=== PATIENT | female | born 1960 | race Caucasian/White ===

== ENCOUNTER 2024-06-27 11:15 | Outpatient (CLI) | payer MEDICARE, SELFPAY ==
--- NOTE | ~2024-06-27 | XR_ITS ---
CHEST RADIOGRAPH, PA AND LATERAL CLINICAL HISTORY: asthmatic like attack 1 wk ago, no hx of asthma . COMPARISON: None available TECHNIQUE: PA and lateral views of the chest. FINDINGS The cardiomediastinal silhouette is unremarkable. Trace peribronchial thickening. The lungs are otherwise clear. IMPRESSION: Trace peribronchial thickening, without focal infiltrate or effusion. Reviewed, dictated and finalized at location A. [employer] WORKER
--- OUTSIDE RECORDS SUMMARY | 2024-06-27 13:04 | XMS_ITS | Clinical Summary ---
Author Organization [facility] Address [facility] [place] [address] Care Team Providers Care Retail Salesman Name Role Phone Lizzette Ann MD Primary Care Provider [phone] Allergies No known active allergies Medications vitamin B-12 (CYANOCOBALAMIN ) 1000 MCG tablet Take 1,000 mcg by mouth daily. lozenge Active Multiple Vitamin (MULTIVITAMIN ADULT OR) Active B-COMPLEX-C OR Activ e vitamin E 100 UNIT capsule Take 100 Units by mouth daily. Active Multiple Vitamins-Minera ls (HAIRVITE OR) Active ibuprofen (MOTRIN) 800 MG tablet Take 800 mg by mouth every 6 (six) hours as needed for Pain. Active Ascorbic Acid (FRANCISCO-C OR) Take 1 tablet by mouth daily. Active multiple vitamins-minera ls (OCUVITE-LUTEIN ) Cap Take 1 capsule by mouth daily. Active calcium citrate 950 (200 CA) MG Tab tablet 950 mg 2 (two) times daily. Active Ascorbic Acid 250 MG Chew Tab Chew 2 tablets by mouth daily. Active HYDROcodone-pilo taminophen (NORCO) 5-325 MG tabletIndicatio ns:Acute Pain < 7 Day Supply Take 1 tablet by mouth every 4 (four) hours as needed. Indications: Acute Pain < 7 Day Supply 20 tablet 05/20/2022 Active Active Problems No known active problems Family History Medical History Relation Comments No Known Problems Father Cancer Mother Relation Status Comments Father Alive Mother Social History Tobacco Use Types Packs/Day Years Used Date Smoking Tobacco: Former Cigarettes Smokeless Tobacco: Never Tobacco Cessation:Counseling Given: Not Answered Comments:Used to be a social smoker, only if drinking back in 20s Alcohol Use Standard Drinks/Week Comments Yes 1.7 (1 standard drin k = 0.6 oz pure alcohol) bottle of wine or so in a week Comments No Sex and Gender Information Value Date Recorded Sex Assigned at Not on file Legal Sex Female 1:51 PM PATTERN MOLDER Gender Identity Not on file Sexual Orientation Not on file Last Filed Vital Signs Vital Sign Reading Time Taken Comments Blood Pressure 157/96 05/20/2022 4:30 PM PATTERN MOLDER Pulse 91 05/20/2022 4:30 PM PATTERN MOLDER Temperature 37 C (98.6 F) 05/20/2022 4:30 PM PATTERN MOLDER Respiratory Rate 16 05/20/2022 4:30 PM PATTERN MOLDER Oxygen Saturation 99% 05/20/2022 4:30 PM PATTERN MOLDER Inhaled Oxygen Concentration - - Weight 62.4 kg (137 lb 9.1 oz) 05/20/2022 10:35 AM PATTERN MOLDER Height 168.9 cm (5' 6.5 ) 05/20/2022 10:35 AM CS T Body Mass Index 21.87 05/20/2022 10:35 AM PATTERN MOLDER Plan of Treatment Health Maintenance Due Date Last Done Comments Colorectal Cancer Screening Colonoscopy (10 Years) 1959 Hepatitis C 1977 DTaP, Tdap and Td Vaccines (1 - Tdap) 1978 Mammogram Screening 1999 COVID-19 Vaccine ( season) 2023 04/15/2021, 08/12/2020, 07/28/2020, Additional history exists Influenza Adult (#1) 2024 Dexa Scan (General) 2024 Pneumococcal Vaccine: 65+ Years (1 of 1 - PCV) 2024 RSV Immunization or 60+ Years (1 - 1-dose 75+ series) 2034 Zoster Vaccines Completed 09/18/2021, 07/18/2021 Meningococcal B Vaccine Aged Out No l onger eligible based on patient's age to complete this topic Meningococcal Vaccine Aged Out No suzy bladimir eligible based on patient's age to complete this topic Pneumococcal Vaccine: Pediatrics (0 to 5 Years) and At-Risk Patients (6 to 64 Years) Aged Out No longer eligible based on patient's age to complete this topic RSV Immunizations Under 20 Months Aged Out No longer eligible based on patient's age to complete this topic Insurance Care Teams Retail Salesman Relationship Specialty Start Date End Date Lizzette Ann MD [address] [place] [address] [place] [address] PCP - General FAMILY PRACTICE 09/01/22
--- OUTSIDE RECORDS SUMMARY | 2024-06-27 13:04 | XMS_ITS | Clinical Summary ---
Author Organization [facility] Address [address], [facility] [address] [place] [address] Phone Care Team Providers Care Clinical Implementation Specialist Name Role Phone Provider, None Primary Care Provider Unavailabl e Allergies No known active allergies Medications polyethylene glycol (MIRALAX) Powder Mix the entire bottle with 64 oz of a clear liquid. Use as directed by the office for colonoscopy prep. 255 g 0 6 Active Ascorbic Acid (VITAMIN C) 250 MG Chewable Tablet Take 2 Tabs by mouth daily. Active vitamin E (TOCOPHEROL) 400 UNIT Capsule Take 400 Units by mouth daily. Active B Complex Vitamins (VITAMIN B COMPLEX PO) Take 1 Tab by mouth daily. Active multiple vitamin with minerals (CENTRUM SILVER) Tablet Take 1 Tab by mouth daily. Active Multiple Vitamins-Minera ls (EYE VITAMINS PO) Take 1 Tab by mouth daily. Active ASPIRIN PO Take 1 Tab by mouth as needed. Active Ibuprofen (ADVIL PO) Take 1 Tab by mouth as needed. Active Active Problems No known active problems Family History Medical History Relation Name Comments Macular Degeneration Father Breast Cancer Mother Hypertension Mother Stroke Mother Relation Name Status Comments Father Alive Mother Social History Tobacco Use Types Packs/Day Years Used Date Smoking Tobacco: Former Cigarettes Q uit: 10/29/2000 Smokeless Tobacco: Never Comments:former social smoke r Alcohol Use Standard Drinks/Week Comments Yes 0 (1 standard drink = 0.6 oz pur e alcohol) daily glass of wine or a beer Comments No Sex and Gender Information Value Date Recorded Sex Assigned at Not on file Legal Sex Female 8:41 PM CDT Gender Identity Not on file Sexual Orientation Not on file Last Filed Vital Signs Vital Sign Reading Time Taken Comments Blood Pressure 117/69 10/30/2015 8:25 AM CDT Pulse 67 09/04/2015 8:52 AM CDT Temperature 36 C (96.8 F) 10/30/2015 8:25 AM CDT Respiratory Rate 15 10/30/2015 8:25 AM CDT Oxygen Saturation 99% 10/30/2015 8:25 AM CDT Inhaled Oxygen Concentration - - Weight 64.4 kg (142 lb) 10/23/2015 2:39 PM CDT Height 170.2 cm (5' 7 ) 10/23/2015 2:39 PM CDT Body Mass Index 22.24 10/23/2015 2:39 PM CDT Plan of Treatment Health Maintenance Due Date Last Done Comments DEXA Bone Density 1960 Hepatitis C Virus (HCV) Screening 1960 TdaP Immunization 1959 Pap Smear 1980 Cervical Cancer Screening (CCS) 1989 HPV/Cotest 1989 Mammogram 1999 Cologuard 2009 Immunochemical Fecal Occult Blood 2009 Pneumococcal Immunization (5 0+ years) (1 of 1 - PCV) 2009 Zoster Immunization (1 of 2) 2009 Influenza Immunization (#1) 2023 SARS-COV-2 Immunization ( - 2023- season) 2023 Colonoscopy 10/29/2025 10/30/2015 Colorectal Cancer Screening 10/29/2025 Respiratory Syncytial Virus (RSV) Immunization (Adult) (1 - 1-dose 75+ series) 2034 10/30/2015 Hepatitis B Immunization Aged Out No longer eligible based on patient's age to complete this topic Meningococcal Immunization (ACWY) Aged Out No longer eligible based on patient's age to complete this topic Pneumococcal Immunization Combined Aged Out No longer eligible based on patient's age to complete this topic Rotavirus Immunization Aged Out No lo nger eligible based on patient's age to complete this topic Care Teams Clinical Implementation Specialist Relationship Specialty Start Date End Date Provider, None [place] PCP - General 10/08/20
--- OUTSIDE RECORDS SUMMARY | 2024-06-27 13:04 | XMS_ITS | Referral Summary ---
Author Organization [facility] [address] Address [address] [place] [address] Phone Care Team Providers Care Nurse Substance Abuse Name Role Phone Lizzette Ann MD Primary Care Provider + Allergies No known active allergies Medications ascorbic acid (vitamin C) 100 mg tablet once a day 0 0 05/21/2013 Active vitamin E (AQUASOL E) 100 unit capsule once a day 0 05/21/2013 Activ e multivit-mineral s-ferrous fum (MULTI VITAMIN) 9 mg iron/15 mL liquid once a day 0 0 05/21/2013 Active vit M4-guquhm-Y9-B12 -dexpanth (B COMPLEX) 1.7-20-2-1.2 mg/mL liquid once a day 0 0 05/21/2013 Active cyanocobalamin, vitamin B-12, 1,[address] 1 TABLET UNDER THE TOUNGE EVERY DAY FOR 90 DAYS. 11/29/2021 Active Active Problems Problem Noted Date Diagnosed Date Personal history of colonic polyps 02/24/2023 Encounter for screening colonoscopy 02/24/2023 Social History Tobacco Use Types Packs/Day Years Used Date Smoking Tobacco: Former Smokeless Tobacco: Never Alcohol Use Standard Drinks/Week Comments Yes 0 (1 standard drink = 0.6 oz pur e alcohol) Personal Safety Answer Date Recorded Have you ever been in or are you currently in a harmful physical or emotional relationship or is someone making you feel afraid or unsafe? Denies 05/19/2023 Comments No Sex and Gender Information Value Date Recorded Sex Assigned at Not on file Legal Sex Female 12:34 PM LENS GRINDER APPRENTICE Gender Identity Not on file Sexual Orientation Not on file Occupation Industry Job Start Date Job End Date [employer] hanging [employer] removal Not on file Not on file Not on file Last Filed Vital Signs Vital Sign Reading Time Taken Comments Blood Pressure 131/91 05/19/2023 8:40 AM LENS GRINDER APPRENTICE Pulse 60 05/19/2023 8:40 AM LENS GRINDER APPRENTICE Temperature 36.2 C (97.1 F) 05/19/2023 8:40 AM LENS GRINDER APPRENTICE Respiratory Rate 16 05/19/2023 8:40 AM LENS GRINDER APPRENTICE Oxygen Saturation 100% 05/19/2023 8:40 AM LENS GRINDER APPRENTICE Inhaled Oxygen Concentration - - Weight 64 kg (141 lb) 05/19/2023 7:15 AM LENS GRINDER APPRENTICE Height 167.6 cm (5' 6 ) 05/19/2023 7:15 AM LENS GRINDER APPRENTICE Body Mass Index 22.76 05/19/2023 7:15 AM LENS GRINDER APPRENTICE Plan of Treatment Not on file Procedures Procedure Name Priority Date/Time Associated Diagnosis Comments COLONOSCOPY 05/19/2023 7:04 AM LENS GRINDER APPRENTICE SCREENING MAMMOGRAM 2D BILATERAL Schedule Routine, Read Routine (OP Routine) 11/08/2019 9:31 AM CDT Breast cancer screening by mammogram IMAGING PAP AND HPV MRNA E6/E7 Routine 11/08/2019 9:21 AM CDT Screening for malignant neoplasm of the cervix from Last 3 Months or Most Recently Relevant to Health Maintenance Results * COLONOSCOPY (05/19/2023 7:04 AM LENS GRINDER APPRENTICE) Anatomical Region Laterality Modality Other Narrative Procedure Note Francisco Rand MD - 05/19/2023 7:04 AM CST [facility] Patient Name: Daina Degonia Procedure Date: 05/19/2023 7:04 AM Date of : 1960 Admit Type: Outpatient Age: 63 Gender: Female Attending MD: Francisco Rand M.D. Room: [facility] ENDOSCOPY ROOM 2 Note Status: Finalized Patient Profile: Refer to note in patient chart for documentation of history and physical. Procedure: Colonoscopy Indications: High risk colon cancer surveillance: Personalhistory of colonic polyps, Last colonoscopy: October 2015 Referring MD: Lizzette Ann M.D. Providers: Francisco Rand M.D. Impression: - Hemorrhoids found on perianal exam. - Diverticulosis in the sigmoid colon. - The examination was otherwise normal. - No specimens collected. Recommendation: - Discharge patient to home. - Resume previous diet. - Continue present medications. - [facility] [address] [facility] - Return to primary care physician as previously scheduled. Medicines: Propofol per Anesthesia Complications: No immediate complications. Estimated Blood Loss: Estimated blood loss: none. Procedure: Pre-Anesthesia Assessment: - This assessment was completed [Time ofAssessment] prior to the administration of sedation. The benefits, risks and alternatives of theprocedure and sedation were discussed and informed consentwas obtained. All questions were answered. Please referto the signed informed consent document in the medical record. The bowel preparation used was Miralax via single dose instruction. The bowel preparation used was bisacodyl tablets via single dose instruction.The scope was passed under direct vision. TheColonoscope [id number] was introduced through the anus and advanced to the the cecum, identified by appendiceal orifice and ileocecal valve. The colonoscopy was performed without difficulty. The patient tolerated the procedure well. The qualityof the bowel preparation was excellent. The ileocecal valve, appendiceal orifice, and rectum were photographed. Findings: Hemorrhoids were found on perianal exam. Multiple small and large-mouthed diverticula were found in thesigmoid colon. The exam was otherwise without abnormality. Electronically signed by Francisco Rand M.D. Francisco Rand M.D. 05/19/2023 8:08:12 AM Number of Addenda: 0 Note Initiated On: 05/19/2023 7:04 AM Procedure Code(s): --- Professional --- G0105, Colorectal cancer screening; colonoscopy on individual at high risk --- Technical --- G0105, Colorectal cancer screening; colonoscopy on individual at high risk Diagnosis Code(s): --- Professional --- K57.30, Diverticulosis of large intestine without perforation orabscess without bleeding K64.9, Unspecified hemorrhoids Z86.010, Personal history of colonic polyps --- Technical --- K57.30, Diverticulosis of large intestine without perforation orabscess without bleeding K64.9, Unspecified hemorrhoids Z86.010, Personal history of colonic polyps CPT copyright 2020 [employer]. All rights reserved. The codes documented in this report are preliminary and upon label coder reviewmay be revised to meet current compliance requirements. Recognized by the [employer] for promoting quality in endoscopy us Francisco Rand MD ENDOSCOPY PROCEDURES Final Re sult * Screening Mammogram 2D Bilateral (11/08/2019 9:31 AM CDT) Anatomical Region Laterality Modality Breast Bilateral Mammography Narrative 11/12/2019 4:38 PM CDT BILATERAL DIGITAL MAMMOGRAPHY The present examination has been compared to prior imaging studies dated 01/11/2018, 07/25/2016, and 05/21/2013. Mammography Findings CAD (computer-aided detection) software was utilized. The breasts are heterogeneously dense. This may lower the sensitivity of mammography. No masses, significant calcifications or other abnormalities are seen. Impression There is no mammographic evidence of malignancy. Screening mammogram in 1 year is recommended. BI-RADS Category 1: Negative PATIENT LETTER SENT Result [facility] Asuncion Liao MD IMG MAMMO PROCEDURES Final Result * Imaging Pap and HPV mRNA E6/E7 (11/08/2019 9:21 AM CDT) CLINICAL INFORMATION: [facility] Comment:Information not prov ided LMP [facility] Comment:POSTMENOPAUSAL Previous Pap [facility] Comment:INFORMATION NOT PROV IDED Prev. Bx [facility] Comment:INFORMATION NOT PROV IDED SOURCE: [facility] Comment:Information not prov ided Pap, specimen adequacy [facility] Comment:SATISFACTORY FOR SIXTO LUATION HPV interp [facility] Comment: Negative for intraepithelial lesion or malignancy. Atrophic pattern; predominantly parabasal cells COMMENTS [facility] Comment: This Pap test has been evaluated with computer assisted technology. [employer] [facility] Comment: MEF, CT(ASCP) CT screening location: [place] [address] [place] [address] Comment [facility] Comment: EXPLANATORY NOTE: The Pap is a screening test for cervical cancer. It is not a diagnostic test and is subject to false negative and false positive results. It is most reliable when a satisfactory sample, regularly obtained, is submitted with relevant clinical findings and history, and when the Pap result is evaluated along with historic and current clinical information. Human papillomavirus RNA, High Risk E6/E7 Not Detected Not Detected [employer] [facility] Comment: This test was performed using the APTIMA HPV Assay ([employer] This assay detects E6/E7 viral messenger RNA (mRNA) from 14 high-risk HPV types (16,18,31,33,35,39,45,51,52,56,58,59,66,68). The analytical performance characteristics of this assay have been determined by [employer]. The modifications have not been cleared or approved by the FDA. This assay has been validated pursuant to the CLIA regulations and is used for clinical purposes. Vaginal fluid 11/08/2019 9:2 1 AM CDT 11/11/2019 12:14 PM CDT Lizzette Gar NP LAB PATHOLOGY ORDERABLES Final Result [facility] [address] [id number] [facility] [address] [place] [address] from Last 3 Months or Most Recently Relevant to Health Maintenance Insurance [employer] [place] [place] [employer] [place] [place] Advance Directives For more information, please contact: [phone] * Full Code (Latest Code Status on File) Date Activated Date Inactivated Comments 05/19/2023 7:09 AM 05/19/2023 12:51 PM * Full Code Date Activated Date Inactivated Comments 05/19/2023 7:09 AM 05/19/2023 7:09 AM Care Teams Nurse Substance Abuse Relationship Specialty Start Date End Date Lizzette Ann MD [address] [place] [address] [place] [id number] PCP - General Family Medicine 06/29/22
--- OUTSIDE RECORDS SUMMARY | 2024-06-27 13:04 | XMS_ITS | Clinical Summary ---
Author Organization [facility] [address] Address [address] [place] [address] Phone Care Team Providers Care Money Laundering Investigator Name Role Phone Lizzette Ann MD Primary Care Provider + Allergies No known active allergies Medications ascorbic acid (vitamin C) 100 mg tablet once a day 0 0 05/21/2013 Active vitamin E (AQUASOL E) 100 unit capsule once a day 0 05/21/2013 Activ e multivit-mineral s-ferrous fum (MULTI VITAMIN) 9 mg iron/15 mL liquid once a day 0 0 05/21/2013 Active vit U8-obsaas-Y7-B12 -dexpanth (B COMPLEX) 1.7-20-2-1.2 mg/mL liquid once a day 0 0 05/21/2013 Active cyanocobalamin, vitamin B-12, 1,[address] 1 TABLET UNDER THE TOUNGE EVERY DAY FOR 90 DAYS. 11/29/2021 Active Active Problems Problem Noted Date Diagnosed Date Personal history of colonic polyps 02/24/2023 Encounter for screening colonoscopy 02/24/2023 Surgical History Surgery Date Site/Laterality Comments TONSILLECTOMY Tonsillectomy OTHER SURGICAL HISTORY ASCUS HR HPV (-): Colposcopy- ' benign polyp, '08 MAGALYS 1 OTHER SURGICAL HISTORY Benign calcifications, intraductal hyperplasia: R breast biopsy '02, '04 COLONOSCOPY 10/2015 THYROIDECTOMY, PARTIAL 04/24/2022 - 05/24/2022 Medical History Medical History Date Comments Hx Other Medical ASCUS HR HPV (- ) Hx Other Medical Benign calcific ations, intraductal hyperplasia Family History Medical History Relation Name Comments Breast cancer Mother 2 Cancer, breast ; Stroke Mother 2 Stroke; Cause o f : Stroke Relation Name Status Comments Mother 1 (Age 86) Mother 2 Social History Tobacco Use Types Packs/Day Years [...] on file Legal Sex Female 12:34 PM INVESTMENT DIRECTOR Gender Identity Not on file Sexual Orientation Not on file Occupation Industry Job Start Date Job End Date [employer] hanging [employer] removal Not on file Not on file Not on file Obstetrics History Para Term AB IAB SAB Ectopic Multiple Livin g Live Births 2 1 1 1 1 Date Outcome GA Total Labor Labor/2nd/3rd Weight Sex Type Anes PTL Ying A1 A5 Name Clin Term AB Last Filed Vital Signs Vital Sign Reading Time Taken Comments Blood Pressure 131/91 05/19/2023 8:40 AM INVESTMENT DIRECTOR Pulse 60 05/19/2023 8:40 AM INVESTMENT DIRECTOR Temperature 36.2 C (97.1 F) 05/19/2023 8:40 AM INVESTMENT DIRECTOR Respiratory Rate 16 05/19/2023 8:40 AM INVESTMENT DIRECTOR Oxygen Saturation 100% 05/19/2023 8:40 AM INVESTMENT DIRECTOR Inhaled Oxygen Concentration - - Weight 64 kg (141 lb) 05/19/2023 7:15 AM INVESTMENT DIRECTOR Height 167.6 cm (5' 6 ) 05/19/2023 7:15 AM INVESTMENT DIRECTOR Body Mass Index 22.76 05/19/2023 7:15 AM INVESTMENT DIRECTOR Plan of Treatment Health Maintenance Due Date Last Done Comments Depression Screening 1960 Hepatitis C Screening 1960 Osteoporosis Screening-Bone Density Scan 1960 DTaP/Tdap/Td Vaccine (1 - Tdap) 1970 Hepatitis B Screening 1977 Pneumococcal vaccine 65+ (1 of 1 - PCV) 2009 Breast Cancer Screening-Mammogram 11/07/2020 020, 01/11/2018 Cervical Cancer Screening 11/07/20202019, 05/10/2012, 05/10/2012, Additional history exists Covid-19 Vaccine ( - 2023-2 5 season) 2023 04/15/2021, 08/12/2020, 07/28/2020, Additional history exists Influenza Vaccine (#1) 2023 Well Visit 65+ 2024 12/08/2021, 10/22, 01/11/2018 Fall Risk Assessment 05/19/2024 05/19/2023 Colon Cancer Screening-Colonoscopy 05/19/2033 05/19/2023 Zoster Vaccine Completed 09/18/2021, 07/18/2021 Colon Cancer Screening-CT Colonography Discontinued 05/19/2023 Colon Cancer Screening-DNA Stool Discontinued 05/19/19 Colon Cancer Screening-FIT Discontinued 05/19/2023 Colon Cancer Screening-Sigmoidoscopy Discontinued 05/19/2023 Procedures Procedure Name Priority Date/Time Associated Diagnosis Comments COLONOSCOPY 05/19/2023 7:04 AM INVESTMENT DIRECTOR SCREENING MAMMOGRAM 2D BILATERAL Schedule Routine, Read Routine (OP Routine) 11/08/2019 9:31 AM CDT Breast cancer screening by mammogram IMAGING PAP AND HPV MRNA E6/E7 Routine 11/08/2019 9:21 AM CDT Screening for malignant neoplasm of the cervix from Last 3 Months or Most Recently Relevant to Health Maintenance Results * COLONOSCOPY (05/19/2023 7:04 AM INVESTMENT DIRECTOR) Anatomical Region Laterality Modality Other Narrative Procedure Note Francisco Rand MD - 05/19/2023 7:04 AM CST [facility] Patient Name: Daina Meehan Procedure Date: 05/19/2023 7:04 AM Date of : 1960 Admit Type: Outpatient Age: 63 Gender: Female Attending MD: Francisco Rand M.D. Room: [facility] ENDOSCOPY ROOM 2 Note Status: Finalized Patient [...] medications. - [facility] - Return to primary care physician [...] scope was passed under direct vision. TheColonoscope [id number] was introduced through the anus and advanced [...] history of colonic polyps CPT copyright 2020 [employer]. All rights reserved. The codes documented in this report are preliminary and upon inpatient coder reviewmay be revised to meet current compliance requirements. Recognized by the [employer] [employer] for promoting quality [...] BI-RADS Category 1: Negative PATIENT LETTER SENT Asuncion Liao MD IMG MAMMO PROCEDURES Final Result * Imaging Pap and HPV mRNA E6/E7 (11/08/2019 9:21 AM CDT) CLINICAL INFORMATION: [facility] Comment:Information not prov ided LMP [facility] Comment:POSTMENOPAUSAL Previous Pap [facility] Comment:INFORMATION NOT PROV IDED Prev. Bx [facility] Comment:INFORMATION NOT PROV IDED SOURCE: [facility] Comment:Information not prov ided Pap, specimen adequacy [facility] Comment:SATISFACTORY FOR SIXTO LUATION HPV interp [facility] Comment: Negative for intraepithelial lesion or malignancy. Atrophic pattern; predominantly parabasal cells COMMENTS [facility] Comment: This Pap test has been evaluated with computer assisted technology. Youth Specialist Que [facility] Comment: MEF, CT(ASCP) CT screening location: [place] [address] [place] [address] Comment [facility] Comment: EXPLANATORY NOTE: The Pap is a [...] High Risk E6/E7 Not Detected Not Detected [facility] Comment: This test was performed using the APTIMA HPV Assay ([employer] This assay detects E6/E7 viral messenger RNA (mRNA) from 14 high-risk HPV types (16,18,31,33,35,39,45,51,52,56,58,59,66,68). The analytical performance characteristics of this assay have been determined by [employer]. The modifications have not been cleared or approved by the FDA. This assay has been validated pursuant to the CLIA regulations and is used for clinical purposes. Vaginal fluid 11/08/2019 9:2 1 AM CDT 11/11/2019 12:14 PM CDT us Lizzette Gar NP LAB PATHOLOGY ORDERABLES [facility] Result [facility] [id number] [place] [address] [employer] [address] [place] [address] from Last 3 Months or Most Recently Relevant to Health Maintenance Insurance [employer] [place] [employer] [place] Advance Directives For more information, please contact: [phone] * Full Code (Latest Code Status on File) Date Activated Date Inactivated Comments 05/19/2023 7:09 AM 05/19/2023 12:51 PM * Full Code Date Activated Date Inactivated Comments 05/19/2023 7:09 AM 05/19/2023 7:09 AM Care Teams Money Laundering Investigator Relationship Specialty Start Date End Date Lizzette Ann MD [address] [place] [address] [place] [id number] PCP - General Family Medicine 06/29/22
[2024-06-27 19:15] LABS: Alanine Aminotransferase 24 U/L (6-35); Albumin Level 4.4 g/dL (3.5-5.1); Alkaline Phosphatase 59 U/L (38-126); Anion Gap 8 mmol/L (4-12); Aspartate Amino Transferase 59 U/L (14-36); Bilirubin,Total 0.8 mg/dL (0.2-1.3); Blood Urea Nitrogen 14 mg/dL (7-17); Calcium 9.8 mg/dL (8.4-10.2); Carbon Dioxide 28 mmol/L (22-30); Chloride 102 mmol/L (98-107); Estimated Glomerular Filt Rate > 60; Glucose 100 mg/dL (65-110); Potassium 5.1 mmol/L (3.4-5.0); Sodium 138 mmol/L (137-145)
[2024-06-27 19:46] LABS: Thyroid Stimulating Hormone 0.955 uIU/mL (0.465-4.680)
== END 2024-06-27 11:16 | disposition home or self-care (01) ==
PROVIDERS: PCP Nurse Practitioner Adult Health; Visit Provider Nurse Practitioner Adult Health
DX: E07.9 Disorder of thyroid, unspecified (principal); R05.9 Cough, unspecified
CPT/HCPCS: 36415; 71046; 80053; 84443